=== PATIENT | male | born 1990 | race Hispanic/Latino ===

== ENCOUNTER 2017-04-19 13:38 | Emergency (ER) | payer SELFPAY ==
[2017-04-19] MEDS ORDERED: IBUPROFEN 600 MG TABLET ONE (15:10)
[2017-04-19] MEDS ORDERED: SULFAMETHOX-TMP DS 800/160 TAB ONE (15:10)
== END 2017-04-19 15:58 | disposition home or self-care (01) ==
LOC: EDH 13:38
DX: L02.414 Cutaneous abscess of left upper limb (principal); Z72.0 Tobacco use